=== PATIENT | male | born 1930 | race Caucasian/White ===

== ENCOUNTER 2016-05-13 09:34 | Day surgery (SDC) | payer OTHER, MEDICARE ==
[2016-05-13 09:57] VITALS: BMI 29.2
[2016-05-13] MEDS ORDERED: PROPOFOL 20 ML ONE (10:05)
[2016-05-13] MEDS ORDERED: LIDOCAINE HCL/PF 2% SDV 5ML VIAL ONE (10:05)
[2016-05-13 10:55] VITALS: TEMP 97.5
[2016-05-13 12:11] VITALS: BP 108/54; PULSE 57
--- NOTE | 2016-05-14 14:05 | PATH ---
Surgical Pathology Report Patient Name: [facility]. Rec. #: [id number] /Age/Gender: 1930 (Age: 86) / M Account: [id number] Location: [facility]-ENDOSCOPY Taken: 05/13/2016 Received: 05/13/2016 Reported: 05/14/2016 Physicians: Brant Ren M.D. Specimen(s) Received A: BX ANTRAL EROSION B: BX GE JUNCTION Clinical History GERD Erosive gastritis, inflammatory ring lower esophagus Final Diagnosis A. 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 NEGATIVE FOR DYSPLASIA. IMMUNOSTAIN FOR H. PYLORI IS NEGATIVE FOR ORGANISMS. B. GE JUNCTION, BIOPSY: FOCALLY ULCERATED SQUAMOUS MUCOSA WITH ASSOCIATED ACTIVE AND CHRONIC INFLAMMATION AND REFLUX TYPE CHANGES. NO COLUMNAR EPITHELIUM PRESENT (NO INTESTINAL METAPLASIA/TORREZ'S ESOPHAGUS IDENTIFIED). NO FUNGAL ORGANISMS IDENTIFIED WITH PAS STAIN. Electronically Signed Caesar Gutierrez M.D. Gross Description A. Received in formalin, labeled "biopsy antral erosion" are 3 parks, irregular portions of soft tissue ranging from 0.1-0.3 cm in greatest dimension. The specimens are submitted in toto in one cassette. B. Received in formalin, labeled "biopsy GE junction" are 6 parks, irregular portions of soft tissue ranging from 0.1-0.3 cm in greatest dimension. The specimens are submitted in toto in one cassette. /05/13/2016 saudi05/13/2016
== END 2016-05-13 12:11 | disposition home or self-care (01) ==
LOC: JASU-ENDO 09:34
PROVIDERS: ATTEND Internal Medicine Gastroenterology
PROC: 0DB68ZX Excision of Stomach, Via Natural or Artificial Opening Endoscopic, Diagnostic (ICD-10-PCS; 2016-05-13)
PROC: 0DB48ZX Excision of Esophagogastric Junction, Via Natural or Artificial Opening Endoscopic, Diagnostic (ICD-10-PCS; principal; 2016-05-13 10:30)
DX: K25.9 Gastric ulcer, unspecified as acute or chronic, without hemorrhage or perforation (principal); K44.9 Diaphragmatic hernia without obstruction or gangrene; K29.50 Unspecified chronic gastritis without bleeding
CPT/HCPCS: 88305-TC; 88312-TC; 88342-TC